=== PATIENT | female | born 2000 | race Caucasian/White ===

== ENCOUNTER 2022-12-16 12:24 | Outpatient (CLI) | payer OTHER | END 2022-12-16 12:25 | disposition home or self-care (01) | LOC: SCSMRI 12:24 | PROVIDERS: ATTEND Orthopaedic Surgery | DX: S76.301A Unspecified injury of muscle, fascia and tendon of the posterior muscle group at thigh level, right thigh, initial encounter (principal); S76.811A Strain of other specified muscles, fascia and tendons at thigh level, right thigh, initial encounter | CPT/HCPCS: 72195 ==